=== PATIENT | male | born 1985 ===

== ENCOUNTER 2018-07-26 10:50 | Outpatient (CLI) | payer OTHER | END 2018-07-26 10:52 | disposition home or self-care (01) | LOC: SONOGRAMA 10:50 | DX: Z87.442 Personal history of urinary calculi (principal); N20.0 Calculus of kidney ==

== ENCOUNTER 2022-08-05 08:16 | Outpatient (CLI) | payer OTHER | END 2022-08-05 08:34 | disposition home or self-care (01) | LOC: SONOGRAMA 08:16 | PROVIDERS: ATTEND Specialist | DX: M25.512 Pain in left shoulder (principal); M75.102 Unspecified rotator cuff tear or rupture of left shoulder, not specified as traumatic ==

== ENCOUNTER 2023-02-09 10:43 | Outpatient (CLI) | payer OTHER | END 2023-02-09 10:56 | disposition home or self-care (01) | LOC: MRI 10:43 | PROVIDERS: ATTEND Specialist | DX: M75.102 Unspecified rotator cuff tear or rupture of left shoulder, not specified as traumatic (principal); M25.512 Pain in left shoulder | CPT/HCPCS: 73221 ==

== ENCOUNTER 2023-09-15 12:36 | Outpatient (CLI) | payer OTHER | END 2023-09-15 12:46 | disposition home or self-care (01) | LOC: MRI 12:36 | PROVIDERS: ATTEND Specialist | DX: M54.51 Vertebrogenic low back pain (principal); M46.06 Spinal enthesopathy, lumbar region | CPT/HCPCS: 72148 ==